=== PATIENT | female | born 1975 | race Caucasian/White ===

== ENCOUNTER 2016-10-11 14:11 | Emergency (ER) | payer MEDICAID ==
[~2016-10-11] VITALS: Wt 74.0 kg
--- NOTE | 2016-10-11 16:09 | ERA ---
ER Documentation Chief Complaint Date/Time DATE: 10/11/16 TIME: 16:08 Chief Complaint PT SENT PER PMD FOR NO HEART BEAT, 12 WKS PG HPI The patient is a 40-year-old female, presenting to the ER because of no heart rate. 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 Hewitt office. She had vaginal spotting 2 days ago, denies passing any clots or tissue. LMP was July 27, 2016, 3 para 2. She does not smoke, drink. She denies fever, chills, syncope, near syncope, neck pain, chest pain, abdominal pain, vomiting, dysuria Past medical history: None Past surgical history: Ventral herniorrhaphy ROS All systems reviewed and are negative except as per history of present illness. Allergies Allergies: Coded Allergies: No Known Allergy (Unverified , 10/11/16) Physical Exam Vitals Vital Signs Date Time Temp Pulse Resp B/P Pulse Ox O2 Delivery O2 Flow Rate FiO2 10/11/16 14:27 97.2 74 18 143/75 99 Physical Exam Const: No acute distress. Head: Atraumatic. Eyes: Normal Conjunctiva. ENT: Normal External Ears, Nose and Mouth. Neck: Full range of motion. No meningismus. Resp: Clear to auscultation bilaterally. Cardio: Regular rate and rhythm, no murmurs. Abd: Soft, non distended, normal bowel sounds, non tender. Skin: No petechiae or rashes. Back: No midline or flank tenderness. Ext: No cyanosis, or edema. Neur: Awake and alert. No focal deficit Psych: Normal Mood and Affect. Result Diagram: 10/11/16 174 Results 24 hrs Laboratory Tests Test 10/11/16 17:31 10/11/16 17:41 Urine Bilirubin NEGATIVE Urine Clarity CLEAR Urine Color LT. YELLOW Urine Glucose NEGATIVE% Urine Hemoglobin NEGATIVE Urine Ketones NEGATIVE Urine Leukocyte Esterase NEGATIVE Urine Nitrite NEGATIVE Urine Specific [place] <=1.005 Urine Total Protein NEGATIVE Urine Urobilinogen 0.2 E.U./dL Urine pH 6.0 Basophils # 0.110^3/ul Basophils % 0.6% Beta HCG, Quantitative 27976.0mIU/ml Blood Morphology Comment Eosinophils # 0.210^3/ul Eosinophils % 1.3% Hematocrit 40.8% Hemoglobin 13.6g/dl Lymphocytes # 3.310^3/ul Lymphocytes % 26.1% Mean Corpuscular Hemoglobin 28.0pg Mean Corpuscular Hemoglobin Concent 33.5g/dl Mean Corpuscular Volume 83.6fl Mean Platelet Volume 7.9fl Monocytes # 0.710^3/ul Monocytes % 5.6% Neutrophils # 8.410^3/ul Neutrophils % 66.4% Nucleated Red Blood Cells # 0.010^3/ul Nucleated Red Blood Cells % 0.0/100WBC Platelet Count 83159^3/UL Red Blood Count 4.8710^6/ul Red Cell Distribution Width 14.1% White Blood Count 12.610^3/ul Procedures/[place] [id number] Radiology Main Line: [phone] DIAGNOSTIC IMAGING REPORT Patient: TESS CLIFTON : 1975 Age: 40 Sex: F MR #: [id number] DOS: 10/11/16 0000 Ordering MD: JOHANA WEI MD Location: [facility] Room/Bed: PROCEDURE: OBSTETRICAL ULTRASOUND CLINICAL INDICATION: Vaginal Bleed () TECHNIQUE: Multiple sonographic images of the pelvis were obtained utilizing a transabdominal technique. The images were reviewed on a PACS workstation. COMPARISON: None. LMP: 07/27/2016 FINDINGS: The uterus measures 9.4 x 5.2 x 6.2 cm. There is a single intrauterine with mean sac diameter of 1.56 cm, yolk sac, and crown-rump length of 0.30 cm which is consistent with a gestational age of 6 weeks, 1 day . The estimated date of delivery by ultrasound is 06/05/2017 . The estimated gestational age by LMP is 10 weeks, 6 days . The estimated date of delivery by LMP is 05/03/2017 . No heart tones are detected. There is a thin hypoechoic hypovascular lesion adjacent to the gestational sac measuring 3.4 x 0.6 cm which is likely a subchorionic hemorrhage. The right ovary measures 1.9 x 1.4 x 1.7 cm. The left ovary measures 2.6 x 2.1 x 2.2 cm. There is normal vascular flow in both ovaries. There is a 1.6 cm thick-walled cystic lesion with low level internal echoes and mild peripheral vascular flow in the left ovary which is likely a hemorrhagic or corpus luteal cyst. No significant pelvic free fluid is identified. IMPRESSION: An intrauterine gestational sac is identified with a yolk sac and pole, but no cardiac activity. Findings may be due to the early nature of the although early demise cannot be excluded. Short-term follow-up ultrasound and serial Beta HCG measurements are recommended for further evaluation. 3.4 x 0.6 cm subchorionic hemorrhage. 1.6 cm complex cystic lesion in the left ovary is likely a hemorrhagic or corpus luteal cyst. RPTAT: EE Physician Rylee Date Time Electronically viewed and signed by Pramod Ayala Physician on 10/11/2016 17:23 RA/ CC: JOHANA WEI MD MEDICAL MAKING DECISION: The patient is a 40-year-old female, presenting with acute vaginal bleeding during first trimester. She remains well the emergency department. The differential diagnoses considered include but are not limited to threatened/incomplete/inevitable/complete , ectopic , non- related bleeding. Departure Diagnosis: Primary Impression: Vaginal bleeding in patient at less than 20 weeks gestation Condition: Good Comments I discussed the findings with the patient. I advised the patient to follow-up with her logistics supply officer in -2 days, sooner if needed and return if any concern. The patient's blood pressure was elevated (>120/80) but appears stable without evidence of hypertension emergency or urgency. The patient was counseled about the risks of hypertension and urged to pursue outpatient monitoring and therapy within a week with their primary care physician. JOHANA WEI MD Oct 11, 2016 16:09
--- NOTE | 2016-10-11 17:24 | RADRPT ---
PROCEDURE: OBSTETRICAL ULTRASOUND CLINICAL INDICATION: Vaginal Bleed () TECHNIQUE: Multiple sonographic images of the pelvis were obtained utilizing a transabdominal tech nique. The images were reviewed on a PACS workstation. COMPARISON: None. LMP: 07/27/2016 FINDINGS: The uterus measures 9.4 x 5.2 x 6.2 cm. There is a single intrauterine with mean sac diameter of 1.56 cm, yolk sac, and crown-rump length of 0.30 cm which is consistent with a gestational age of 6 weeks, 1 day . The estimated date of delivery by ultrasound is 06/05/2017 . The estimated gestational age by LMP is 10 weeks, 6 days . The estimated date of delivery by LMP is 05/03/2017 . No heart tones are detected. There is a thin hypoechoic hypovascular lesion adjacent to the gestational sac measuring 3.4 x 0.6 c m which is likely a subchorionic hemorrhage. The right ovary measures 1.9 x 1.4 x 1.7 cm. The left ovary measures 2.6 x 2.1 x 2.2 cm. There is no rmal vascular flow in both ovaries. There is a 1.6 cm thick-walled cystic lesion with low level internal echoes and mild peripheral vasc ular flow in the left ovary which is likely a hemorrhagic or corpus luteal cyst. No significant pelvic free fluid is identified. IMPRESSION: An intrauterine gestational sac is identified with a yolk sac and pole, but no cardiac a ctivity. Findings may be due to the early nature of the although early demise canno t be excluded. Short-term follow-up ultrasound and serial Beta HCG measurements are recommended for further evaluation. 3.4 x 0.6 cm subchorionic hemorrhage. 1.6 cm complex cystic lesion in the left ovary is likely a hemorrhagic or corpus luteal cyst. RPTAT: EE Physician Rylee Date Time Electronically viewed and signed by Pramod Ayala Physician on 10/11/2016 17:23 /
[2016-10-11 17:42] LABS: ADD UMIC NO; URINE BILIRUBIN (Dip) NEGATIVE (NEGATIVE); URINE BLOOD (Dip) NEGATIVE (NEGATIVE); URINE COLOR LT. YELLOW (YELLOW); URINE GLUCOSE (Dip) NEGATIVE (NEGATIVE); URINE KETONES (Dip) NEGATIVE (NEGATIVE); URINE LEUKOCYTE ESTERASE (Dip) NEGATIVE (NEGATIVE); URINE NITRITE (Dip) NEGATIVE (NEGATIVE); URINE TOTAL PROTEIN (Dip) NEGATIVE (NEGATIVE); URINE UROBILINOGEN (Dip) 0.2 E.U./dL (0.1-1.0)
[2016-10-11 18:08] LABS: BASOPHIL # 0.1 10^3/ul (0.0-0.1); BASOPHILS % 0.6 % (0.0-2.0); EOSINOPHILS # 0.2 10^3/ul (0.0-0.5); EOSINOPHILS % 1.3 % (0.0-7.0); HEMATOCRIT 40.8 % (37.0-47.0); HEMOGLOBIN 13.6 g/dl (12.0-16.0); LYMPHOCYTES # 3.3 10^3/ul (0.8-2.9); LYMPHOCYTES % 26.1 % (15.0-51.0); MEAN CORPUSCULAR HGB CONC 33.5 g/dl (32.0-37.0); MEAN CORPUSCULAR VOLUME 83.6 fl (82.0-101.0); MEAN PLATELET VOLUME 7.9 fl (7.4-10.4); MONOCYTE # 0.7 10^3/ul (0.3-0.9); MONOCYTES % 5.6 % (0.0-11.0); NEUTROPHIL # 8.4 10^3/ul (1.6-7.5); NEUTROPHILS % 66.4 % (39.0-77.0); PLATELET COUNT 387 10^3/UL (140-440); RED BLOOD COUNT 4.87 10^6/ul (4.20-5.40); RED CELL DISTRIBUTION WIDTH 14.1 % (11.5-14.5); UNCORRECTED WBC 12.6 10^3/ul (4.8-10.8); WHITE BLOOD COUNT 12.6 10^3/ul (4.8-10.8)
[2016-10-11 18:09] LABS: CONDITION 1
[2016-10-11 19:30] VITALS: BP 131/70; PULSE 79; RESP 18; TEMP 97.1
== END 2016-10-11 19:30 | disposition home or self-care (01) ==
LOC: FTE 14:11
DX: O20.9 Hemorrhage in early pregnancy, unspecified (principal); Z3A.01 Less than 8 weeks gestation of pregnancy
CPT/HCPCS: 36415; 76801; 76817; 81003; 84702; 85025; 86900; 86901; Z7502